=== PATIENT | male | born 1990 | race Caucasian/White ===

== ENCOUNTER 2018-09-07 10:53 | Emergency (ER) | payer SELFPAY ==
[~2018-09-07] VITALS: Ht 170.2 cm; Wt 56.7 kg
[2018-09-07] MEDS ORDERED: HYDROcodone/Acetamin 10/325 tab ORAL ONE (11:45)
[2018-09-07] MEDS ORDERED: Ketorolac 60mg Inj IM ONE (11:45)
--- NOTE | 2018-09-07 13:20 | Diagnostic Imaging Report ---
Indication: Foot Pain Comparison: None Findings: 3 views of the right foot were obtained. There is a fracture of the first proximal phalange extending into the interphalangeal joint. The fracture appears old. Please correlate clinically. Alignment is normal. Soft tissues are unremarkable. IMPRESSION: Fracture of the first proximal phalange probably old. Correlate clinically
[2018-09-07] MEDS ORDERED: Hydrogen Peroxide 473ml Bottle TOPIC ONE ×2 (13:47→14:00)
[2018-09-07] MEDS ORDERED: Bacitracin Oint UD TOPIC ONE ×2 (13:47→14:00)
[2018-09-07] MEDS ORDERED: IBUPROFEN600 MG ORAL (13:59)
[2018-09-07] MEDS ORDERED: NORCO 5-325 TA1 EACH ORAL (13:59)
[2018-09-07] MEDS ORDERED: AUGMENTIN 875-1 EAC1 ORAL (13:59)
[2018-09-07 14:14] VITALS: BP 114/80
--- NOTE | 2018-09-07 14:15 | NUR ---
ER DISCHARGE NOTE: Patient is cleared to be discharged per ERMD, pt is aox4, on room air, with stable vital signs. pt was given dc and prescription instructions, pt was able to verbalize understanding, pt id band removed. pt is able to ambulate with steady gait. pt took all belongings.
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
== END 2018-09-07 14:30 | disposition home or self-care (01) ==
LOC: EMR 11:24
DX: S92.411A Displaced fracture of proximal phalanx of right great toe, initial encounter for closed fracture (principal); V03.99XA Pedestrian with other conveyance injured in collision with car, pick-up truck or van, unspecified whether traffic or nontraffic accident, initial encounter; Y92.9 Unspecified place or not applicable
CPT/HCPCS: 29515; 96372; 99283